=== PATIENT | male | born 1950 | race African-American/Black ===

== ENCOUNTER → 2016-07-16 | Outpatient (CLI) | payer OTHER, MEDICARE ==
--- NOTE | 2016-07-17 17:32 | RESP ---
DATE OF SERVICE: 07/16/2016 ATTENDING PHYSICIAN: Dr. Michele. The patient's FVC was 3.28, which is 75% predicted; FEV1 was 2.39, which is 72% predicted; the FEV1/FVC ratio was normal. FEF 25-75 was 50% predicted. There was no significant response to bronchodilators. Lung volumes showed a total lung capacity of 109% predicted and residual volume of 171% predicted. Diffusion capacity was 69% predicted. IMPRESSION: 1. Mild obstructive airway disease. 2. No response to bronchodilators. 3. Lung volumes consistent with hyperinflation and air trapping. 4. Mildly reduced diffusion capacity. BENIGNO MILLER MD DR: KAL/ketan JOB#: [id number] / [id number]
== END | disposition home or self-care (01) ==
LOC: PF 11:12
PROVIDERS: ATTEND Internal Medicine
DX: C34.90 Malignant neoplasm of unspecified part of unspecified bronchus or lung (principal)
CPT/HCPCS: 94060; 94729